=== PATIENT | female | born 1985 | race Caucasian/White ===

== ENCOUNTER 2017-06-08 18:05 | Emergency (ER) | payer BC ==
[2017-06-08 18:39] VITALS: TEMP 98.4; BMI 23.0
--- NOTE | 2017-06-08 19:14 | PDOC ---
History of Present Illness - General Chief Complaint: Lightheaded Stated Complaint: DIZZINESS Time Seen by Provider: 06/08/17 19:13 - History of Present Illness Initial Comments: 06/08/17 19:30 Patient is a 32-year-old female with no past medical history who presents to the emergency department today stating that she got lightheaded and dizzy at the dentist office. Patient states she was in to have a cavity filled when the dentist used some lidocaine to numb her tooth. Patient states that she felt her lightheaded and dizzy as the dentist was about to do the procedure. She states that her feet and legs went numb at that time as well. She was laid down at the dentist office and she states that she felt a bit better. The dentist tried to do procedures second time, but patient reports similar symptoms as the doctor was trying to numb her tooth. Patient states that she had a similar episode approximately one year ago when she saw a needle for anesthesia as an outpatient procedure. Patient did not pass out, or hit her head. Patient states that she feels much better after sitting in the emergency department. Denies recent illness, fevers, chills, weakness, chest pain, shortness of breath, cough , nausea, vomiting or diarrhea. Past History - Past Medical History Allergies/Adverse Reactions: Allergies Allergy/AdvReac Type Severity Reaction Status Date / Time No Known Allergies Allergy Verified 06/08/17 18:28 Home Medications: Ambulatory Orders NK [No Known Home Medication] 06/08/17 - Psycho/Social/Smoking Cessation Hx Anxiety: No Suicidal Ideation: No Smoking History: Never smoked Have you smoked in the past 12 months: No Hx Alcohol Use: No Drug/Substance Use Hx: No Substance Use Type: None Review of Systems - Review of Systems Able to Perform ROS?: Yes Comments:: 06/08/17 19:34 CONSTITUTIONAL: Absent: fever, chills, diaphoresis, generalized weakness, malaise, loss of appetite HEENT: Absent: rhinorrhea, nasal congestion, throat pain, throat swelling, difficulty swallowing, mouth swelling, ear pain, eye pain, visual Changes CARDIOVASCULAR: Absent: chest pain, loss of consciousness, palpitations, irregular heart rate, peripheral edema RESPIRATORY: Absent: cough, shortness of breath, dyspnea with exertion, orthopnea, wheezing, stridor, hemoptysis GASTROINTESTINAL: Absent: abdominal pain, abdominal distension, nausea, vomiting, diarrhea, constipation, melena, hematochezia GENITOURINARY: Absent: dysuria, frequency, urgency, hesitancy, hematuria, flank pain, genital pain MUSCULOSKELETAL: Absent: myalgia, arthralgia, joint swelling SKIN: Absent: rash, itching, pallor HEMATOLOGIC/IMMUNOLOGIC: Absent: easy bleeding, easy bruising, lymphadenopathy, frequent infections ENDOCRINE: Absent: unexplained weight gain, unexplained weight loss, heat intolerance, cold intolerance NEUROLOGIC: Present: Lightheadedness, numbness of her legs (since resolved). Absent: headache, focal weakness or paresthesias, unsteady gait, seizure, mental status changes, bladder or bowel incontinence PSYCHIATRIC: Absent: anxiety, depression, suicidal or homicidal ideation, hallucinations. Is the patient limited Syriac proficient: No *Physical Exam - Vital Signs Last Vital Signs Temp Pulse Resp BP Pulse Ox 98.4 F 77 18 104/41 95 06/08/17 18:16 06/08/17 18:16 06/08/17 18:16 06/08/17 18:16 06/08/17 18:16 - Physical Exam Comments: 06/08/17 19:30 GENERAL: Well developed, well nourished. AAOx3. No acute distress, breathing easily. Sitting on exam bed. HEENT: Normocephalic, atraumatic. PERRLA, EOMI. No conjunctival pallor. Sclera are non- icteric. Moist mucous membranes. Oropharynx is clear. NECK: Supple. Full ROM. No JVD. Carotid pulses 2+ and symmetric, without bruits. No thyromegaly. No lymphadenopathy. CARDIOVASCULAR: Regular rate and rhythm. No murmurs, rubs, or gallops. Distal pulses are 2+ and symmetric. PULMONARY: No evidence of respiratory distress. Lungs clear to auscultation bilaterally. No wheezing, rales or rhonchi. ABDOMINAL: Soft. Non-tender. Non-distended. No rebound or guarding. No organomegaly. Normoactive bowel sounds. MUSCULOSKELETAL Normal range of motion at all joints. No bony deformities or tenderness. No CVA tenderness. EXTREMITIES: No cyanosis. No clubbing. No edema. No calf tenderness. SKIN: Warm and dry. Normal capillary refill. No rashes. No jaundice. NEUROLOGICAL: Alert, awake, appropriate. Cranial nerves 2-12 intact. No deficits to light touch and temperature in face, upper extremities and lower extremities. No motor deficits in the in face, upper extremities and lower extremities. Normoreflexic in the upper and lower extremities. Normal speech. Toes are down- going bilaterally. Gait is normal without ataxia. PSYCHIATRIC: Cooperative. Good eye contact. Appropriate mood and affect. Medical Decision Making - Medical Decision Making 06/08/17 19:41 Patient is a 32-year-old female with no past medical history who presents to the emergency department today stating that she got lightheaded and dizzy at the dentist office. Given patient's symptoms were brief and resolved after lying down, most likely vasovagal episode due to procedure she was about to have. After exam patient states that she feels much better. She no longer feels dizzy, lightheaded or that she has numbness and tingling down her legs. Her gait is intact. 1. UA, UPreg 2. EKG 3. Orthostatics 4. Re-evaluate 06/08/17 20:35 Patient tolerates by mouth fluids. States she feels much better at this time. EKG shows a rate of 59, MT interval 108, QT interval for 10/405. Normal axis sinus bradycardia with no acute ST-T wave changes. Urine is negative, negative Vital signs are stable patient feeling much better. We will discharge home at this time. Most likely vasovagal episode d/t procedure. Patient understands all discharge instructions and all questions were answered at this time. *DC/Admit/Observation/Transfer Diagnosis at time of Disposition: Vaso vagal episode - Discharge Dispostion Disposition: HOME Condition at time of disposition: Improved Admit: No - Referrals Referrals: Manisha Kam [Primary Care Provider] - - Patient Instructions Additional Instructions: Your exam was normal today. Her EKG and urine were also normal. You had a near fainting episode most likely due to the dental procedure you were going to have. Drink plenty of fluids and get plenty of rest. Follow-up with her primary care doctor within the week. If you feel lightheaded, dizzy, numbness or tingling, lose consciousness or feel like you're going to lose consciousness, or have any changes in your symptoms return to the emergency department.
[2017-06-08 19:59] LABS: URINE APPEARANCE CLEAR; URINE BILIRUBIN NEGATIVE (NEGATIVE); URINE BLOOD 1+ (NEGATIVE); URINE COLOR STRAW; URINE GLUCOSE (UA) NEGATIVE (NEGATIVE); URINE KETONE TRACE (NEGATIVE); URINE LEUK ESTERASE TRACE (NEGATIVE); URINE NITRITE NEGATIVE (NEGATIVE); URINE PROTEIN NEGATIVE (NEGATIVE); URINE UROBILINOGEN NEGATIVE mg/dL (0.2-1.0)
[2017-06-08 20:17] LABS: URINE MUCUS RARE; URINE RBC 1 /hpf (0-3); URINE WBC 1 /hpf (3-5)
--- NOTE | 2017-06-08 20:37 | PDOC ---
*Physical Exam - Vital Signs Last Vital Signs Temp Pulse Resp BP Pulse Ox 98.4 F 77 18 104/41 95 06/08/17 18:16 06/08/17 18:16 06/08/17 18:16 06/08/17 18:16 06/08/17 18:16 ED Treatment Course - ADDITIONAL ORDERS Additional order review: Laboratory Results 06/08/17 06/08/17 19:50 19:50 Urine Color Straw Urine Appearance Clear Urine pH 6.0 Urine Protein Negative Urine Glucose (UA) Negative Urine Ketones Trace H Urine Blood 1+ H Urine Nitrite Negative Urine Bilirubin Negative Urine Urobilinogen Negative Ur Leukocyte Esterase Trace Urine RBC 1 Urine WBC 1 Ur Epithelial Cells Rare Urine Mucus Rare Urine HCG, Qual Negative Medical Decision Making - Medical Decision Making 06/08/17 20:35 agree with care from SULTANA Rivera. EKG is nsr with no changes. UA/UCG is negative. VSS. Will discharge. *DC/Admit/Observation/Transfer Diagnosis at time of Disposition: Vaso vagal episode - Discharge Dispostion Disposition: HOME Condition at time of disposition: Good - Referrals Referrals: Manisha Kam [Primary Care Provider] - - Patient Instructions Additional Instructions: Your exam was normal today. Her EKG and urine were also normal. You had a near fainting episode most likely due to the dental procedure you were going to have. Drink plenty of fluids and get plenty of rest. Follow-up with her primary care doctor within the week. If you feel lightheaded, dizzy, numbness or tingling, lose consciousness or feel like you're going to lose consciousness, or have any changes in your symptoms return to the emergency department.
[2017-06-08 20:47] VITALS: BP 85/55; PULSE 78
--- NOTE | 2017-06-09 13:01 | EKG ---
Test Reason : Blood Pressure : / mmHG Vent. Rate : 059 BPM Atrial Rate : 059 BPM P-R Int : 108 ms QRS Dur : 090 ms QT Int : 410 ms P-R-T Axes : 021 055 047 degrees QTc Int : 405 ms SINUS BRADYCARDIA WITH SHORT GA OTHERWISE NORMAL ECG NO PREVIOUS ECGS AVAILABLE Confirmed by ROLANDO BARRERA MD ([id number]) on 06/09/2017 1:01:02 PM Referred By: Confirmed By:ROLANDO BARRERA MD
== END 2017-06-08 20:55 | disposition home or self-care (01) ==
LOC: JER 18:05
DX: R55 Syncope and collapse (principal)
CPT/HCPCS: 81003; 81015; 84703; 93005; 93010; 99284-25